=== PATIENT | female | born 1950 | race Caucasian/White ===

== ENCOUNTER 2020-08-25 12:24 | Emergency (ER) | payer MEDICARE ==
[~2020-08-25] VITALS: Ht 154.9 cm; Wt 92.9 kg
--- NOTE | 2020-08-25 16:45 | NUR ---
Magdalena CEDEÑO notified of SBP >215
[2020-08-25 16:51] VITALS: BP 215/90
== END 2020-08-25 17:00 | disposition home or self-care (01) ==
LOC: ER 12:25
DX: I80.02 Phlebitis and thrombophlebitis of superficial vessels of left lower extremity (principal); I10 Essential (primary) hypertension
CPT/HCPCS: 93971; 99284